=== PATIENT | male | born 1965 | race Caucasian/White ===

== ENCOUNTER 2025-05-10 22:56 | Inpatient (IN) ==
[2025-05-11] MEDS ORDERED: ACETAMINOPHEN 325 MG TAB PO PRN (01:53)
[2025-05-11] MEDS ORDERED: PROMETHAZINE 6.25 MG/50.25 ML BAG IV PRN (01:53)
[2025-05-11] MEDS ORDERED: NALOXONE HCL 0.4 MG/1 ML VIAL/CARP IV PRN (01:53)
[2025-05-11] MEDS ORDERED: MAGNESIUM HYDROXIDE SUSP 30 ML UDC PO PRN (01:53)
--- NOTE | 2025-05-11 01:59 | History & Physical Report ---
Date of Service May 11, 2025 Assessment & Plan (1) Hip fracture, right: Plan: Assessment and plan below following review of patient history/pertinent normal/abnormal diagnostic test results. Traumatic right hip fracture secondary to fall Hyperglycemia rule out DM Malnutrition Re: Low BMI Ongoing tobacco abuse Admit to [facility] Orthopedics consult RE right hip fracture ([facility] ED provider already in touch with [facility] Ortho [facility] over the phone.) N.p.o. status in anticipation of procedure in AM. Check hemoglobin A1c Dietitian consult in a.m. re: low BMI Nicotine patch as needed DVT prophylaxis. SCDs re: possible procedure Full code Text document was generated using [employer] voice recognition software. It may contain grammatical or spelling errors. Kindly contact undersigned for clarification of any documentation item in question. Admission and Anticipated Discharge Date Admission Date: May 11, 2025 History of Present Illness Chief Complaint: Hip fracture Primary Care Provider: NO PCP History obtained from patient and records. Medical history significant for ongoing tobacco abuse. Patient tripped at home yesterday while walking up a flight of stairs. Achy right hip pain following fall. Patient had trouble getting up. Denies head trauma/LOC, chest pain, SOB. Patient brought to [facility] ER for evaluation. CT imaging showed intertrochanteric fracture right femur. Patient transferred to [facility] for Orthopedics services. 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 Allergies Allergy/AdvReac Type Severity Reaction Status Date / Time No Known Allergies Allergy Verified 05/11/25 01:45 Home Medications Medication Instructions Recorded Confirmed Type No Known Home Medications 05/11/25 05/11/25 History Past Med/Surg History Problem List (Updated 05/11/25 @ 08:37 by Mak Puckett PA-C) Subtrochanteric fracture of right femur Hip fracture, right Social History Smoking Status: Current every day smoker Tobacco Type: Cigarettes Cigarettes Per Day: 1 pack per day; Second Hand Exposure: No; Do You Dip or Chew Tobacco: No; Tobacco Cessation Education Requested by Patient: No Hx Alcohol Use: Yes Alcohol type: beer Hx Substance Use: No Preferred Language: Malay Communication Ability: Effective Cna Gna Required: No Beliefs That Will Affect Care: None Current Living Situation: Spouse Other Information That Helps Us Care for You: No Feels Safe at Home: Yes Safety Concerns: Feels Safe At This Time Assistive Devices: Glasses Review of Systems Review of Systems: As per HPI, all other systems reviewed and negative Physical Exam Physical Exam: GENERAL: Comfortable, pleasant, underweight, no respiratory distress SKIN: Normal color, warm HEENT: [place] palpebral conjunctivae, no ptosis, dry buccal mucosa NECK : Supple, no tenderness CHEST : Decreased breath sounds, no tenderness HEART : RRR, no obvious murmurs ABDOMEN: no distention, nontender EXTREMITIES : No LE swelling, right hip tenderness, palpable pulses, no other conspicuous deformities noted NEUROLOGIC : Coherent, no facial asymmetry, no other gross focality Results & Data Results & Data Vital Signs (Past 12 Hours) Vital Signs Temp Pulse Resp BP Pulse Ox O2 Del Method 37 C 91 H 18 136/73 92 Room Air 05/11/25 02:00 05/11/25 02:00 05/11/25 02:00 05/11/25 02:00 05/11/25 02:00 05/11/25 02:00 Laboratory Results 05/10 ([facility]) Hemoglobin 14, hematocrit 45, WBC 13, platelets 196 Sodium 136, potassium 4, chloride 102, CO2 27, BUN 15, creatinine 1, glucose 161 CT head: no acute intracranial pathology CT cervical spine: No acute fracture or traumatic subluxation CT chest abdomen pelvis: Intertrochanteric fracture right femur Emphysema Diagnostic Findings EKG as per my interpretation (05/10, [facility]) : Rate 90, RAD, no ischemia
[2025-05-11] MEDS ORDERED: MoRPHine SULFATE 4 MG/ML 1 ML CARP\\VIAL IV PRN (02:11)
[2025-05-11] MEDS: SODIUM CHLORIDE 0.9% 1,000 ML IV STA (03:11)
[2025-05-11] MEDS: MoRPHine SULFATE 2 MG/ML CARP IV PRN (04:28)
[2025-05-11 07:20] LABS: Hematocrit (blood only) 36.9 % (42.0-52.0); Hemoglobin 12.4 g/dL (14.0-18.0); Immature Granulocytes # (auto) 0.04 K/uL (0.01-0.20); Immature Granulocytes % (auto) 0.5 %; Mean Corpuscular Hemoglobin 31.2 pg (25.0-34.0); Mean Corpuscular Volume 92.9 fL (80.0-100.0); Platelet Count 157 K/uL (130-400); RDW Standard Deviation 48.3 fL (36.4-46.3); Red Blood Count 3.97 M/uL (4.70-6.10); White Blood Count 8.11 K/ul (4.8-10.8)
[2025-05-11 07:38] LABS: Anion Gap 5.0 (3-11); Blood Urea Nitrogen 13.0 mg/dl (6-23); Calcium 8.6 mg/dl (8.6-10.3); Carbon Dioxide 28.0 mmol/L (21-32); Chloride 104.0 mmol/L (98-107); Creatinine Clr Calc Pharmacy 77.5 ml/min; Glucose 96.0 mg/dl (70-99(Fasting)); Potassium 4.0 mmol/L (3.5-5.1); Sodium 137.0 mmol/L (136-145)
[2025-05-11 07:54] LABS: Hemoglobin A1C 5.6 % (4.5-5.6)
--- NOTE | 2025-05-11 07:57 | XRay Report ---
EXAM: XR femur RT 2V routine CLINICAL HISTORY: fracture TECHNIQUE: X-ray images of the right femur were obtained in anteroposterior (AP) and lateral projections. COMPARISON: No prior studies are available for comparison. FINDINGS: Bone Structure: Fracture line is seen traversing the right trochanteric ridge, extending to involve the base of lesser trochanter and subtrochanteric area. The femoral shaft, neck, and proximal and distal regions are normal in structure and alignment. No evidence of acute fractures or dislocations. Bone density is within normal limits, and no osseous lesions or abnormalities are identified. The cortical bone is intact without evidence of periosteal reaction, cortical thinning, or irregularities. The medullary canal is normal in appearance, with no lytic or sclerotic lesions noted. Joint and Articular Surfaces: Joint spaces in the visualized hip and knee regions are preserved, with no significant narrowing, osteophyte formation, or subchondral sclerosis. Visualized articular surfaces of the femur are smooth and regular, without any signs of irregularity, osteophyte formation, or erosion. Soft Tissues: Periarticular and surrounding soft tissues appear normal. No signs of soft tissue swelling, calcifications, or masses. No evidence of degenerative changes, infection, or inflammatory processes observed. IMPRESSION: Non-displaced fracture of the right intertrochanteric ridge with involvement of base of lesser trochanter and subtrochanteric area. Disclaimer: A subtle bone abnormality or fracture may not be readily apparent on X-rays. Clinical correlation and further imaging, including CT, MRI, or follow-up X-rays, are advised if clinically warranted. Electronically signed by Arpit Wells 05-11-2025 07:56 AM
--- NOTE | 2025-05-11 08:15 | XRay Report ---
SEMIERECT AP CHEST RADIOGRAPH CLINICAL HISTORY: Preoperative evaluation. COMPARISON STUDY: No previous studies for comparison. FINDINGS: Lung volumes are normal. Lungs are clear. There is no pneumothorax or pleural effusion. Car diac size is normal. Mediastinal contours are normal. There is no evidence for pulmonary edema. IMPRESSION: No acute cardiopulmonary findings. ACT 112: Negative or not required by law. Electronically signed by: Eusebio Vale M.D. 05/11/2025 8:14 AM
--- NOTE | 2025-05-11 08:27 | XRay Report ---
EXAM: XR hip 1V RT w pelvis CLINICAL HISTORY: Hip fracture. TECHNIQUE: X-ray images of the right hip joints in lateral projection with pelvis in AP view. COMPARISON: No prior studies available for comparison. FINDINGS: Hip Joints: Non-displaced fracture of the right proximal femoral shaft involving the intertrochanteric ridge and a slightly displaced fracture of the base of the right lesser trochanter. Hip joints are normal with preserved joint spaces. No evidence of hip dislocation or significant degenerative changes. No osteophytes, joint space narrowing, or sclerosis noted. Sacroiliac joints appear normal and unremarkable. No evidence of sacroiliitis or significant degenerative changes. Symphysis Pubis: Symphysis pubis is normal and intact. No evidence of separation or widening. Soft Tissues: Visualised soft tissues are normal and unremarkable. No soft tissue swelling, calcifications, or masses. IMPRESSION: Non-displaced fracture of the right proximal femoral shaft involving the intertrochanteric ridge and a slightly displaced fracture of the base of the right lesser trochanter. Disclaimer: A subtle bone abnormality or fracture may not be readily apparent on X-rays, thus clinical correlation and further imaging including follow-up CT, MRI, or follow-up X-rays are advised as needed. Electronically signed by Arpit Wells 05-11-2025 08:26 AM
--- NOTE | 2025-05-11 08:38 | Orthopedic Consultation ---
Date of Service May 11, 2025 Assessment & Plan (1) Subtrochanteric fracture of right femur: * Case/imaging reviewed and discussed with Dr Baron * Recommend OR fixation, plan for TFN today 05/11 * Maintain NPO * Weight bearing status: NWB pre-op * Daily treatment: Physical Therapy/ Occupational Therapy per protocol * Pain control * Disposition: TBD * Remainder care per primary team * Will continue to follow History of Present Illness Reason for Consultation: right hip pain Requesting Physician: . Attending Physician: Chani Horne MD Patient is a 59 y/o male with right hip pain. No significant PMH in chart. Presents to hospital with right hip pain after a fall. Initially presented to [facility] and was diagnosed with right femur fracture, transferred to [facility] for orthopedic evaluation. Current workup including XR right hip and femur demonstrating subtrochanteric femur fracture. Admitted to hospital medicine team. Orthopedics consulted for management recommendations. At time of exam patient lying comfortably in bed, no acute distress. Reports moderate right hip pain at rest that increases with attempted use of the right leg. denies tingling or numbness RLE. No assistive devices at baseline. Allergies Allergy/AdvReac Type Severity Reaction Status Date / Time No Known Allergies Allergy Verified 05/11/25 01:45 Home Medications Medication Instructions Recorded Confirmed Type No Known Home Medications 05/11/25 05/11/25 History Past Med/Surg History Problem List Subtrochanteric fracture of right femur Hip fracture, right Social History Smoking Status: Current every day smoker Tobacco Type: Cigarettes Cigarettes Per Day: 1 pack per day; Second Hand Exposure: No; Do You Dip or Chew Tobacco: No; Tobacco Cessation Education Requested by Patient: No Hx Alcohol Use: Yes Alcohol type: beer Hx Substance Use: No Preferred Language: Albanian Communication Ability: Effective Mental Health Unit Lead Psychologist Required: No Beliefs That Will Affect Care: None Current Living Situation: Spouse Other Information That Helps Us Care for You: No Feels Safe at Home: Yes Safety Concerns: Feels Safe At This Time Assistive Devices: Glasses Review of Systems All systems reviewed & are unremarkable except as noted in HPI & below. Physical Exam . * General: Alert and oriented, no acute distress * Constitutional: well-developed, well-nourished. * Respiratory: Normal respiratory effort, no distress * Gastrointestinal: No tenderness to palpation, no rigidity or guarding. * Skin: No rash or lesion. * Neurologic: Grossly normal * Musculoskeletal: right lower extremity shortened and externally rotated. Otherwise no obvious deformity or overlying skin changes to the right leg. TTP anterior thigh and proximal thigh region. Otherwise no tenderness of the distal thigh, knee, lower leg. Pain with log roll, otherwise ROM hip not assessed. AROM foot/ankle intact. Sensation intact plantar/dorsal foot. Brisk capillary refill. Results & Data Results & Data Laboratory Results . Diagnostic Findings . Hip/Pelvis X-Ray 05/11/25 07:05 EXAM: XR hip 1V RT w pelvis CLINICAL HISTORY: Hip fracture. TECHNIQUE: X-ray images of the right hip joints in lateral projection with pelvis in AP view. COMPARISON: No prior studies available for comparison. FINDINGS: Hip Joints: Non-displaced fracture of the right proximal femoral shaft involving the intertrochanteric ridge and a slightly displaced fracture of the base of the right lesser trochanter. Hip joints are normal with preserved joint spaces. No evidence of hip dislocation or significant degenerative changes. No osteophytes, joint space narrowing, or sclerosis noted. Sacroiliac joints appear normal and unremarkable. No evidence of sacroiliitis or significant degenerative changes. Symphysis Pubis: Symphysis pubis is normal and intact. No evidence of separation or widening. Soft Tissues: Visualised soft tissues are normal and unremarkable. No soft tissue swelling, calcifications, or masses. IMPRESSION: Non-displaced fracture of the right proximal femoral shaft involving the intertrochanteric ridge and a slightly displaced fracture of the base of the right lesser trochanter. Disclaimer: A subtle bone abnormality or fracture may not be readily apparent on X-rays, thus clinical correlation and further imaging including follow-up CT, MRI, or follow-up X-rays are advised as needed. Electronically signed by Arpit Wells 05-11-2025 08:26 AM Femur X-Ray 05/11/25 07:06 EXAM: XR femur RT 2V routine CLINICAL HISTORY: fracture TECHNIQUE: X-ray images of the right femur were obtained in anteroposterior (AP) and lateral projections. COMPARISON: No prior studies are available for comparison. FINDINGS: Bone Structure: Fracture line is seen traversing the right trochanteric ridge, extending to involve the base of lesser trochanter and subtrochanteric area. The femoral shaft, neck, and proximal and distal regions are normal in structure and alignment. No evidence of acute fractures or dislocations. Bone density is within normal limits, and no osseous lesions or abnormalities are identified. The cortical bone is intact without evidence of periosteal reaction, cortical thinning, or irregularities. The medullary canal is normal in appearance, with no lytic or sclerotic lesions noted. Joint and Articular Surfaces: Joint spaces in the visualized hip and knee regions are preserved, with no significant narrowing, osteophyte formation, or subchondral sclerosis. Visualized articular surfaces of the femur are smooth and regular, without any signs of irregularity, osteophyte formation, or erosion. Soft Tissues: Periarticular and surrounding soft tissues appear normal. No signs of soft tissue swelling, calcifications, or masses. No evidence of degenerative changes, infection, or inflammatory processes observed. IMPRESSION: Non-displaced fracture of the right intertrochanteric ridge with involvement of base of lesser trochanter and subtrochanteric area. Disclaimer: A subtle bone abnormality or fracture may not be readily apparent on X-rays. Clinical correlation and further imaging, including CT, MRI, or follow-up X-rays, are advised if clinically warranted. Electronically signed by Arpit Wells 05-11-2025 07:56 AM Chest X-Ray 05/11/25 07:51 SEMIERECT AP CHEST RADIOGRAPH CLINICAL HISTORY: Preoperative evaluation. COMPARISON STUDY: No previous studies for comparison. FINDINGS: Lung volumes are normal. Lungs are clear. There is no pneumothorax or pleural effusion. Cardiac size is normal. Mediastinal contours are normal. There is no evidence for pulmonary edema. IMPRESSION: No acute cardiopulmonary findings. ACT 112: Negative or not required by law. Electronically signed by: Eusebio Vale M.D. 05/11/2025 8:14 AM PG Care Time/CCT Total # of Minutes Spent Total Time Spent with Patient: Total time spent is greater than 50% in coordination of care (as documented) at patient's floor/unit and/or counseling patient: [place] [address] IN/OBS CONSULT LVL 5,80M Patient Type New Medical Decision Making High Complexity Diagnoses Subtrochanteric fracture of right femur S72.21XA
[2025-05-11] MEDS ORDERED: PROPOFOL IV EMULSION 10 MG/ML 20 ML VIAL IV ONE (10:08)
[2025-05-11] MEDS ORDERED: ROCURONIUM BROMIDE 10 MG/ML 5 ML VIAL IV ONE (10:08)
[2025-05-11] MEDS ORDERED: ONDANSETRON INJ 2 MG/ML 2 ML VIAL ONE (10:08)
[2025-05-11] MEDS ORDERED: DEXAMETHASONE SOD INJ 4 MG/ML VIAL ONE (10:08)
[2025-05-11] MEDS ORDERED: MIDAZOLAM HCL 1 MG/ML 2ML VIAL ONE (10:09)
[2025-05-11] MEDS ORDERED: SUGAMMADEX SODIUM 200 MG/2 ML VIAL IV ONE (10:10)
[2025-05-11] MEDS: CHOLECALCIFEROL 125 MCG (5,000 UNITS) TAB PO SCH (10:13)
--- NOTE | 2025-05-11 10:20 | Anesthesiology Consultation ---
Date of Service May 11, 2025 Assessment & Plan Chart Review Chart Review: Acceptable Risk for Surgery, Patient NOT seen in Pre Admission Testing and medical charge entry specialist initiated Consults Requested none History Surgery Operation Date: 05/11/25 07:00 Proposed Procedures p Right Long Troch Nail - Saroj Baron MD Height/Weight Height: 5 ft 8 in Weight: 48 kg Allergies Allergy/AdvReac Type Severity Reaction Status Date / Time No Known Allergies Allergy Verified 05/11/25 01:45 Medications Home Medications Medication Instructions Recorded Confirmed Last Taken No Known Home Medications 05/11/25 05/11/25 Unknown Active Medications Generic Name Dose Route Start Last Admin Trade Name Freq PRN Reason Stop Dose Admin Sodium Chloride 1,000 mls @ 60 mls/hr 05/11/25 02:13 05/11/25 03:11 Nss IV 05/11/25 18:52 60 mls/hr .[id number] STA Administration Morphine Sulfate 2 mg 05/11/25 03:17 05/11/25 07:25 Morphine Sulfate 2 Mg/Ml Carp IV 05/25/25 02:10 2 mg Q4H PRN Administration Pain Vitamin D 125 mcg 05/11/25 09:00 05/11/25 10:13 Cholecalciferol 125 Mcg (5,000 Units) Tab PO 06/10/25 08:59 125 mcg QAM FILOMENA Administration Social History Smoking Status: Current every day smoker Smoking cigarettes per day: 1 pack per day Do You Dip or Chew Tobacco: No Hx Alcohol Use: Yes Alcohol type: beer alcohol intake frequency: a few times a month Hx Substance Use: No Physical Exam Vital Signs Last Vital Signs Temp 36.8 C 05/11/25 07:21 Pulse 72 05/11/25 07:21 Resp 18 05/11/25 07:21 BP 107/71 05/11/25 07:21 Pulse Ox 95 05/11/25 07:21 O2 Del Method Room Air 05/11/25 07:21 Testing Laboratory Results 05/11/25 06:38 05/11/25 06:38 Hemoglobin A1c 5.6 % (4.5-5.6) 05/11/25 06:38 Blood Type AB Positive 05/11/25 06:38 Antibody Screen NEGATIVE 05/11/25 06:38
[2025-05-11] MEDS ORDERED: POLYETHYLENE (MIRALAX) 17 GM PACK PO PRN (11:47)
[2025-05-11] MEDS ORDERED: ONDANSETRON INJ 2 MG/ML 2 ML VIAL IV PRN (11:47)
[2025-05-11] MEDS ORDERED: ATROPINE SULFATE 0.1 MG/ML 10ML SYR IV PRN (11:47)
[2025-05-11] MEDS ORDERED: BUPIVACAINE/EPINEPHRINE 0.5% MPF 1:200,000 10 ML VIAL ONE (11:48)
--- NOTE | 2025-05-11 11:49 | Hospitalist Progress Note ---
Date of Service May 11, 2025 Assessment & Plan (1) Hip fracture, right: Plan: 59 yo M w/ ongoing tobacco use and no other significant PMH came after he tripped at home while walking up a flight of stairs, did not have LOC/head trauma, fell on right hip and started right hip pain. He is being managed for the following: Traumatic right hip fracture secondary to fall Vitamin D deficiency Came in with fall, noted to have Non-displaced fracture of the right intertrochanteric ridge with involvement of base of lesser trochanter and subtrochanteric area. c/w pain management, Ortho on board Pt w/ no ho DM, stroke, AL, stents; hence mild-mod risk for much needed operative intervention. PT/OT and Chemo DVT Px post operatively after clearance from ortho. Prn bowel regimen. resume diet after sx. 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 pt reports ok appetite. Ongoing tobacco abuse: Nicotine patch as needed DVT prophylaxis. SCDs re: possible procedure Full code Text document was generated using [employer] voice recognition software. It may contain grammatical or spelling errors. Kindly contact undersigned for clarification of any documentation item in question. Admission and Anticipated Discharge Date Admission Date: May 11, 2025 Subjective Patient was seen and examined at bedside. Patient was lying in bed, on room air, NAD, resting comfortably. Patient reports right hip pain with movement. Patient denies any fever/sore throat/cough/chest pain/abdominal pain/shortness of breath/pain or burning while passing urine/diarrhea. Physical Exam Physical Exam: GENERAL: Comfortable, pleasant, underweight, no respiratory distress SKIN: Normal color, warm HEENT: [place] palpebral conjunctivae, no ptosis, moist buccal mucosa NECK : Supple, no tenderness CHEST : Decreased breath sounds, no tenderness HEART : RRR, no obvious murmurs ABDOMEN: no distention, nontender EXTREMITIES : No LE swelling, right hip tenderness, palpable pulses, no other conspicuous deformities noted NEUROLOGIC : Coherent, no facial asymmetry, no other gross focality Results & Data Results & Data Vital Signs (Past 12 Hours) Vital Signs Temp Pulse Resp BP Pulse Ox O2 Del Method 05/11/25 11:32 36.9 C 92 H 18 131/70 95 Room Air 05/11/25 07:21 36.8 C 72 18 107/71 95 Room Air 05/11/25 02:00 37 C 91 H 18 136/73 92 Room Air
--- NOTE | 2025-05-11 12:23 | History & Physical Bridge Note ---
Date of Service May 11, 2025 History & Physical Bridge Note I have examined the patient, reviewed the History & Physical and in the interval since the performance of the History & Physical I have noted the following changes of clinical significance: no changes noted
[2025-05-11] MEDS ORDERED: PHENYLEPHRINE 100MCG/ML 5ML SYR ONE (12:49)
[2025-05-11] MEDS ORDERED: PROPOFOL IV EMULSION 10 MG/ML 100 ML VIAL IV ONE (12:49)
[2025-05-11] MEDS ORDERED: ePHEDrine sulfate 50 MG/5 ML SYR ONE (12:50)
[2025-05-11] MEDS ORDERED: PHENYLEPHRINE HCL 10 MG/ML VIAL ONE (12:59)
[2025-05-11] MEDS: BUPIVACAINE/EPINEPHRINE 0.5% MPF 1:200,000 30 ML VIAL ONE (13:35)
--- NOTE | 2025-05-11 13:58 | Operative Report ---
PG Post Operative Report Pre & Post Diagnosis Operation Date: 05/11/25 07:00 Pre-Op Diagnosis: Intertrochanteric fracture of right femur Post-Op Diagnosis: Intertrochanteric fracture of right femur I identified the patient and participated in the time-out.: Yes Procedure Operation Date: 05/11/25 07:00 Actual Procedures p Right long trochanteric Femoral Nail(Right) - Saroj Baron MD Surgeon Saroj Baron MD Hot Roll Inspector Roly Brennan PA-C Estimated Blood Loss 50 Findings Consistent with Post-Op Diagnosis Specimens None Anesthesia Type Spinal MAC Complications none Disposition Accompanied Patient To Recovery: No Indications Patient is a 59-year-old gentleman who sustained a mechanical fall yesterday. He had caught his foot and twisted his leg and fell to the ground. Acute onset of pain and x-rays in the ER revealed a a intertrochanteric hip fracture. He was initially seen at [facility] and [place]. He was sent to our institution for care. He was transferred here, admitted by the hospitalist service, medically optimized and indicated for surgical repair. Description of Procedure Operative implants consist of: 1 Synthes right 340 mm x 11 mm long trochanteric nail. 2. 95 mm helical blade. 3. 5.0 x 44 mm distal interlocking screw x 1. The patient was taken to the op room, identified, placed on the operating table in the supine position. All contact areas were appropriately padded. IV antibiotics were tried by anesthesia team. Patient also received 1 g of TXA. A spinal anesthetic was implemented. The patient was then placed on the fracture table. The right leg was placed in traction and the left leg was placed in a well-leg patel. I applied some longitudinal traction to the right leg and internally rotated the foot so the kneecap pointed to the ceiling. X-ray was brought in. The fracture was anatomically aligned. The right hip and leg were then scrubbed with Hibiclens, prepped with ChloraPrep and draped in usual sterile fashion. A curvilinear incision was made just proximal to the tip of the trochanter and in line with the IM canal. Sharp dissection was got through subcutaneous tissue down to level the IT band gluteal fascia. The IT band gluteal fascia was then incised longitudinally in line with skin incision. Guidewire was then placed on the lateral tip of the trochanter and in line with the IM canal on both the AP and lateral planes. This was advanced down the canal. This was verified and then overreamed with a large 17 mm reamer. This guidewire were removed and exchanged for a ball-tipped guidewire which was advanced down the IM canal. We measured for nail length and a 340 mm nail was selected. I then overreamed the guidewire with a 10 mm reamer followed by the 11, 12, and 12.5 mm flexible reamers. We then placed a 340 mm x 11 mm right long trochanteric nail over the guidewire and tapped into position. A lateral aiming arm was attached. A stab incision was made the lateral aiming arm was advanced the lateral aspect the femur. Guidewire was placed in the central aspect of the femoral head slightly inferior on the AP plane and directly in the center on the lateral. We measured and a 95 mm helical blade was selected. The cortical drill was used to breach the cortex and the triple reamer was set at 95 the guidewire was overreamed. A 95 mm helical blade was then tapped into position. The proximal setscrew was tightened and backed off half a turn. The proximal aiming arm was removed and some final x-rays were obtained of the proximal hip. Attention drawn toward distal interlocking. Using the perfect [place] technique a stab incision was made and the drill was created and a 44 mm distal interlocking screw was placed. Some final x-rays were obtained. Attention drawn toward closing. All wounds were irrigated extensively. I did inject locally with 30 cc of half percent Marcaine with epinephrine. The gluteal fascia was then closed with #1 Vicryl suture in a running fashion the subcutaneous tissues of all wounds were then closed with 2-0 Dexon suture in a buried interrupted fashion skin was closed skin cyn. The leg was then cleaned and dried and a sterile dressing Vineet Xeroform, 4 fours, ABD pad and Medipore tape was applied. The patient was then taken off the fracture table and transported to the recovery room in stable condition. Patient tolerated the procedure well and no complications. Roly Brennan, my physician physician assistant certified, was present for the entire procedure. His assistance was required for proper patient positioning, prepping and draping, surgical exposure, retraction, performed the technical details of the operation, placement implants, closure of the incision site, and placement of the postoperative sterile dressing. I attest to the content of the Intraoperative Record and any orders documented therein. Any exceptions are noted below.
--- NOTE | 2025-05-11 13:59 | Fluoroscopy Report ---
FL femur RT 2V CLINICAL HISTORY: RT TROCHNAILacute fracture of the right femur COMPARISON STUDY: Femur radiographs 05/11/2025 FLUOROSCOPY TIME: 72.2 seconds FLUOROSCOPY IMAGES: 4 EXPOSURE DOSE: 9.20 mGy FINDINGS: Acute intertrochanteric right femoral fracture fixated with an intertrochanteric nail with medullary haily. Satisfactory alignment without dislocation. IMPRESSION: Fluoroscopic assistance as above. ACT 112: Negative or not required by law. Electronically signed by: Jairo Ramires M.D. 05/11/2025 1:58 PM
--- NOTE | 2025-05-11 14:51 | Anesthesiology Progress Note ---
Date of Service May 11, 2025 Anesthesia Post Procedure Vital Signs Vital Signs: Temp Pulse Pulse Resp BP Pulse Ox O2 Del Method 05/11/25 14:40 36.6 C 83 16 105/64 97 Room Air 05/11/25 14:30 81 12 104/64 97 Room Air 05/11/25 14:20 87 14 108/57 L 100 Oxymask 05/11/25 14:10 92 H 12 111/56 L 100 Oxymask 05/11/25 14:00 88 16 98/45 L 100 Oxymask 05/11/25 13:53 36.0 C L 98 H 16 94/50 L 100 Oxymask 05/11/25 11:32 36.9 C 92 H 18 131/70 95 Room Air 05/11/25 07:21 36.8 C 72 18 107/71 95 Room Air 05/11/25 07:20 Room Air 05/11/25 02:00 37 C 91 H 18 136/73 92 Room Air O2 Flow Rate 05/11/25 14:40 05/11/25 14:30 05/11/25 14:20 4 05/11/25 14:10 4 05/11/25 14:00 6 05/11/25 13:53 6 05/11/25 11:32 05/11/25 07:21 05/11/25 07:20 05/11/25 02:00 Pain Intensity Right Hip: Pain Intensity: 4 Transfer of Care Handoff Completed per policy Notes Mental Status: alert / awake / arousable and participated in evaluation Patient Amnestic to Procedure: Yes Nausea / Vomiting: adequately controlled Pain: adequately controlled Airway Patency, RR, SpO2: stable & adequate BP & HR: stable & adequate Hydration State: stable & adequate Neuraxial Anesthesia: was administered and sensory block is resolving Anesthetic Complications: no major complications apparent and Pt Satisfied with anesthetic care
[2025-05-11] MEDS: TRANEXAMIC ACID / 0.7% NACL 1000MG/100ML BAG IV ONE (15:46)
[2025-05-11] MEDS: TRANEXAMIC ACID / 0.7% NACL 1,000 MG/100 ML BAG IV SCH (15:47)
[2025-05-11] MEDS: ASPIRIN 81 MG ECTAB PO SCH (20:32)
[2025-05-12 06:49] LABS: Hematocrit (blood only) 36.3 % (42.0-52.0); Hemoglobin 12.5 g/dL (14.0-18.0); Immature Granulocytes # (auto) 0.04 K/uL (0.01-0.20); Immature Granulocytes % (auto) 0.5 %; Mean Corpuscular Hemoglobin 31.6 pg (25.0-34.0); Mean Corpuscular Volume 91.7 fL (80.0-100.0); Platelet Count 151 K/uL (130-400); RDW Standard Deviation 47.0 fL (36.4-46.3); Red Blood Count 3.96 M/uL (4.70-6.10); White Blood Count 8.39 K/ul (4.8-10.8)
--- NOTE | 2025-05-12 07:31 | Orthopedic Progress Note ---
Date of Service May 12, 2025 Assessment & Plan (1) Subtrochanteric fracture of right femur: Unfortunately still with a lot of pain in the right hip. The surgery went well. He can be weightbearing as tolerated. Will see how he does today with physical therapy. His vital signs are stable. The nursing staff can change his dressings tomorrow. He is orthopedically stable for discharge when medically ready. He will follow-up with orthopedics in 2 weeks. Subjective The was seen and examined at bedside this morning. Unfortunately since having a lot of pain in the right hip. He is struggling to sit at the edge of bedside when I came in the room. He had no other complaints aside from the hip pain.. Review of Systems All systems reviewed & are unremarkable except as noted in HPI & below. Physical Exam On physical exam of the right hip, the dressing is clean and dry. His leg is out in full extension. He is active dorsiflexion and plantarflexion of the right ankle.. Results & Data Results & Data Laboratory Results . Diagnostic Findings . PG Care Time/CCT Total # of Minutes Spent Total Time Spent with Patient: Total time spent is greater than 50% in coordination of care (as documented) at patient's floor/unit and/or counseling patient: Coding Level of Care Code 39703 Post Operative Follow-Up Diagnoses Subtrochanteric fracture of right femur S72.21XA
[2025-05-12 07:39] LABS: Anion Gap 10.0 (3-11); Blood Urea Nitrogen 13.0 mg/dl (6-23); Calcium 8.8 mg/dl (8.6-10.3); Carbon Dioxide 25.0 mmol/L (21-32); Chloride 99.0 mmol/L (98-107); Creatinine Clr Calc Pharmacy 78.6 ml/min; Glucose 88.0 mg/dl (70-99(Fasting)); Potassium 4.1 mmol/L (3.5-5.1); Sodium 134.0 mmol/L (136-145)
[2025-05-12 11:00] LABS: Prealbumin 11.8 mg/dl (20-40)
--- NOTE | 2025-05-12 13:21 | Hospitalist Progress Note ---
Date of Service May 12, 2025 Assessment & Plan (1) Hip fracture, right: Plan: 59 yo M w/ ongoing tobacco use and no other significant PMH came after he tripped at home while walking up a flight of stairs, did not have LOC/head trauma, fell on right hip and started right hip pain. He is being managed for the following: Traumatic right hip fracture secondary to fall Vitamin D deficiency Came in with fall, noted to have Non-displaced fracture of the right intertrochanteric ridge with involvement of base of lesser trochanter and subtrochanteric area. s/p Right long trochanteric Femoral Nail 05/11 c/w pain management, c/w bowel regimen Ortho evaled, aspirin bid for dvt px. wt bear as lilia. Hyperglycemia ruled out DM, A1c 5.6 Malnutrition Re: Low BMI, pulp mixer consult. pt reports ok appetite. Ongoing tobacco abuse: Nicotine patch as needed DVT prophylaxis. SCDs re: possible procedure Full code pt/ot, likely rehab need. Text document was generated using [employer] voice recognition software. It may contain grammatical or spelling errors. Kindly contact undersigned for clarification of any documentation item in question. Admission and Anticipated Discharge Date Admission Date: May 11, 2025 Subjective Patient was seen and examined at bedside. Patient was lying in bed, on room air, NAD, resting comfortably. Patient reports right hip pain at operative site. Patient denies any fever/sore throat/cough/chest pain/abdominal pain/shortness of breath/pain or burning while passing urine/diarrhea. Physical Exam Physical Exam: GENERAL: Comfortable, pleasant, underweight, no respiratory distress SKIN: Normal color, warm HEENT: [place] palpebral conjunctivae, no ptosis, moist buccal mucosa NECK : Supple, no tenderness CHEST : Decreased breath sounds, no tenderness HEART : RRR, no obvious murmurs ABDOMEN: no distention, nontender EXTREMITIES : No LE swelling, right hip dressing c/d/i, palpable pulses, no other conspicuous deformities noted NEUROLOGIC : Coherent, no facial asymmetry, no other gross focality Results & Data Results & Data Vital Signs (Past 12 Hours) Vital Signs Temp Pulse Resp BP Pulse Ox O2 Del Method 05/12/25 08:53 37.3 C 97 H 18 111/68 96 Room Air 05/12/25 07:44 Room Air 05/12/25 03:00 37.2 C 72 16 121/60 95 Room Air
[2025-05-12] MEDS: DOCUSATE SODIUM 100 MG CAP PO SCH (20:29)
[2025-05-13 09:59] LABS: Hematocrit (blood only) 41.1 % (42.0-52.0); Hemoglobin 14.3 g/dL (14.0-18.0); Mean Corpuscular Hemoglobin 31.8 pg (25.0-34.0); Mean Corpuscular Volume 91.5 fL (80.0-100.0); Platelet Count 150 K/uL (130-400); RDW Standard Deviation 45.8 fL (36.4-46.3); Red Blood Count 4.49 M/uL (4.70-6.10); White Blood Count 8.03 K/ul (4.8-10.8)
[2025-05-13 10:16] LABS: Anion Gap 11.0 (3-11); Blood Urea Nitrogen 18.0 mg/dl (6-23); Calcium 9.6 mg/dl (8.6-10.3); Carbon Dioxide 27.0 mmol/L (21-32); Chloride 96.0 mmol/L (98-107); Creatinine Clr Calc Pharmacy 71.2 ml/min; Glucose 142.0 mg/dl (70-99(Fasting)); Potassium 4.2 mmol/L (3.5-5.1); Sodium 134.0 mmol/L (136-145)
--- NOTE | 2025-05-13 12:32 | Hospitalist Progress Note ---
Date of Service May 13, 2025 Assessment & Plan (1) Hip fracture, right: Plan: 59 yo M w/ ongoing tobacco use and no other significant PMH came after he tripped at home while walking up a flight of stairs, did not have LOC/head trauma, fell on right hip and started right hip pain. He is being managed for the following: Traumatic right hip fracture secondary to fall Vitamin D deficiency Came in with fall, noted to have Non-displaced fracture of the right intertrochanteric ridge with involvement of base of lesser trochanter and subtrochanteric area. s/p Right long trochanteric Femoral Nail 05/11 c/w pain management, c/w bowel regimen Ortho evaled, aspirin bid for dvt px. wt bear as lilia. Hyperglycemia ruled out DM, A1c 5.6 Malnutrition Re: Low BMI, clinical services director consult. pt reports ok appetite. Ongoing tobacco abuse: Nicotine patch as needed DVT prophylaxis. SCDs re: possible procedure Full code pt/ot, likely rehab need. Text document was generated using [employer] voice recognition software. It may contain grammatical or spelling errors. Kindly contact undersigned for clarification of any documentation item in question. Admission and Anticipated Discharge Date Admission Date: May 11, 2025 Subjective Patient was seen and examined at bedside. Patient was lying in bed, on room air, NAD, resting comfortably. Patient reports right hip pain at operative site getting better controlled. Patient denies any fever/sore throat/cough/chest pain/abdominal pain/shortness of breath/pain or burning while passing urine/diarrhea. Physical Exam Physical Exam: GENERAL: Comfortable, pleasant, underweight, no respiratory distress SKIN: Normal color, warm HEENT: [place] palpebral conjunctivae, no ptosis, moist buccal mucosa NECK : Supple, no tenderness CHEST : Decreased breath sounds, no tenderness HEART : RRR, no obvious murmurs ABDOMEN: no distention, nontender EXTREMITIES : No LE swelling, right hip dressing c/d/i, palpable pulses, no other conspicuous deformities noted NEUROLOGIC : Coherent, no facial asymmetry, no other gross focality Results & Data Results & Data Vital Signs (Past 12 Hours) Vital Signs Temp Resp BP Pulse Ox O2 Del Method 05/13/25 09:41 Room Air 05/13/25 08:39 36.6 C 18 93/65 L 95 Room Air
--- NOTE | 2025-05-14 07:41 | Orthopedic Progress Note ---
Date of Service May 14, 2025 Assessment & Plan (1) Subtrochanteric fracture of right femur: * Continue Current Treatment * S/p right TFN * Weight bearing status: WBAT * Daily treatment: Physical Therapy/ Occupational Therapy per protocol * Pain control * Continue to monitor for ABLA * DVT prophylaxis, ok to resume from ortho standpoint * Disposition: home, home PT * Office/hospital f/u 2 weeks for progress check and staple/suture removal * Remainder care per primary team * Stable for discharge from ortho standpoint, further planning per primary team Subjective .Active Problems: S/p right TFN POD 3 59 y/o male s/p right TFN. Doing well overall, pain managed and improved function. Denies fever/chills, chest pain/SOB, nausea/vomiting. Otherwise no complaints. Review of Systems All systems reviewed & are unremarkable except as noted in HPI & below. Physical Exam . * General: Alert and oriented, no acute distress * Constitutional: well-developed, well-nourished. * Respiratory: Normal respiratory effort, no distress * Gastrointestinal: No tenderness to palpation, no rigidity or guarding. * Skin: No rash or lesion. * Neurologic: Grossly normal * Musculoskeletal: right hip surgical dressing CDI, not removed for exam. Otherwise no obvious deformity or overlying skin changes. Diffuse TTP proximal thigh and hip region. Otherwise no specific tenderness of distal thigh, lower leg, foot/ankle. AROM hip flexion intact. AROM foot/ankle intact. Sensation intact plantar/dorsal foot. Brisk capillary refill. Results & Data Results & Data Laboratory Results . Diagnostic Findings . PG Care Time/CCT Total # of Minutes Spent Total Time Spent with Patient: Total time spent is greater than 50% in coordination of care (as documented) at patient's floor/unit and/or counseling patient: Coding Level of Care Code 19844 Post Operative Follow-Up Diagnoses Subtrochanteric fracture of right femur S72.21XA
--- NOTE | 2025-05-14 14:32 | Hospitalist Progress Note ---
Date of Service May 14, 2025 Assessment & Plan (1) Hip fracture, right: Plan: 59 yo M w/ ongoing tobacco use and no other significant PMH came after he tripped at home while walking up a flight of stairs, did not have LOC/head trauma, fell on right hip and started right hip pain. He is being managed for the following: Traumatic right hip fracture secondary to fall Vitamin D deficiency Came in with fall, noted to have Non-displaced fracture of the right intertrochanteric ridge with involvement of base of lesser trochanter and subtrochanteric area. s/p Right long trochanteric Femoral Nail 05/11 c/w pain management, c/w bowel regimen Ortho evaled, aspirin bid for dvt px. wt bear as lilia. Hyperglycemia ruled out DM, A1c 5.6 Malnutrition Re: Low BMI, set staff fitter consult. pt reports ok appetite. Ongoing tobacco abuse: Nicotine patch as needed DVT prophylaxis. aspirin bid Full code pt/ot, likely rehab need. Text document was generated using [employer] voice recognition software. It may contain grammatical or spelling errors. Kindly contact undersigned for clarification of any documentation item in question. Admission and Anticipated Discharge Date Admission Date: May 11, 2025 Subjective Patient was seen and examined at bedside. Patient was lying in bed, on room air, NAD, resting comfortably. Patient reports right hip pain at operative site getting better controlled but still not confident he can manage him at home, he doesn't want to go to rehab rather he wants to go home w/ home PT but would like to go tomorrow. Patient denies any fever/sore throat/cough/chest pain/abdominal pain/shortness of breath/pain or burning while passing urine/diarrhea. Physical Exam Physical Exam: GENERAL: Comfortable, pleasant, underweight, no respiratory distress SKIN: Normal color, warm HEENT: [place] palpebral conjunctivae, no ptosis, moist buccal mucosa NECK : Supple, no tenderness CHEST : Decreased breath sounds, no tenderness HEART : RRR, no obvious murmurs ABDOMEN: no distention, nontender EXTREMITIES : No LE swelling, right hip dressing c/d/i, palpable pulses, no other conspicuous deformities noted NEUROLOGIC : Coherent, no facial asymmetry, no other gross focality Results & Data Results & Data Vital Signs (Past 12 Hours) Vital Signs Temp Pulse Resp BP Pulse Ox O2 Del Method 05/14/25 07:38 36.8 C 95 H 16 108/72 95 Room Air 05/14/25 07:34 Room Air
[2025-05-14 22:33] VITALS: O2SAT 96
[2025-05-15 07:01] VITALS: BP 117/75; PULSE 100; RESP 18; TEMP 98.1
--- NOTE | 2025-05-15 11:16 | Discharge Summary ---
Date of Service May 15, 2025 Admission HPI Per Admitting Provider History obtained from patient and records. Medical history significant for ongoing tobacco abuse. Patient tripped at home yesterday while walking up a flight of stairs. Achy right hip pain following fall. Patient had trouble getting up. Denies head trauma/LOC, chest pain, SOB. Patient brought to [facility] ER for evaluation. CT imaging showed intertrochanteric fracture right femur. Patient transferred to [facility] for Orthopedics services. 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 Admission Exam Per Admitting Provider GENERAL: Comfortable, pleasant, underweight, no respiratory distress SKIN: Normal color, warm HEENT: [place] palpebral conjunctivae, no ptosis, dry buccal mucosa NECK : Supple, no tenderness CHEST : Decreased breath sounds, no tenderness HEART : RRR, no obvious murmurs ABDOMEN: no distention, nontender EXTREMITIES : No LE swelling, right hip tenderness, palpable pulses, no other conspicuous deformities noted NEUROLOGIC : Coherent, no facial asymmetry, no other gross focality Principal Diagnosis Traumatic right hip fracture secondary to fall Vitamin D deficiency Discharge Exam GENERAL: Comfortable, pleasant, underweight, no respiratory distress SKIN: Normal color, warm HEENT: [place] palpebral conjunctivae, no ptosis, moist buccal mucosa NECK : Supple, no tenderness CHEST : Decreased breath sounds, no tenderness HEART : RRR, no obvious murmurs ABDOMEN: no distention, nontender EXTREMITIES : No LE swelling, right hip dressing c/d/i, palpable pulses, no other conspicuous deformities noted NEUROLOGIC : Coherent, no facial asymmetry, no other gross focality Discharge Data Allergies Allergy/AdvReac Type Severity Reaction Status Date / Time No Known Allergies Allergy Verified 05/11/25 01:45 Consultations 05/11/25 01:55 Consult Orthopedic Surgery Routine Procedures Performed Operation Date: 05/11/25 07:00 Actual Procedures p Right Trochanteric Femoral Nail(Right) - Saroj Baron MD Ordered Studies 05/11/25 12:44 FL femur RT 2V Routine Hospital Course (1) Hip fracture, right: 59 yo M w/ ongoing tobacco use and no other significant PMH came after he tripped at home while walking up a flight of stairs, did not have LOC/head trauma, fell on right hip and started right hip pain. He is being managed for the following: Traumatic right hip fracture secondary to fall Vitamin D deficiency Came in with fall, noted to have Non-displaced fracture of the right intertrochanteric ridge with involvement of base of lesser trochanter and subtrochanteric area. s/p Right long trochanteric Femoral Nail 05/11 c/w pain management, c/w bowel regimen Ortho evaled, aspirin bid for dvt px. wt bear as lilia. Patient did well after surgery; was walking without any difficulty with physical therapy. Pain was well-controlled. He denied fever, chills, chest pain, shortness of breath or abdominal pain. Patient discharged home with home health. Patient to follow-up with PCP after discharge Text document was generated using [employer] voice recognition software. It may contain grammatical or spelling errors. Kindly contact undersigned for clarification of any documentation item in question. Total Time Total Time Spent Total Time Spent (In Minutes): 45 Total Time Includes: Examination of the Patient, Discharge Planning, Medication Reconciliation, Communication With Other Providers and Other Discharge Plan Discharge Items Patient Disposition: Home - Home Health Services Reason For Visit: HIP FRACTURE Discharge Diagnosis: Intramedullary Nailing of hip fracture Activity: Per Instructions section Weightbearing: Full weightbearing Non-emergency contact: Surgeon Call non-emergency contact if: you have any medication questions Follow-up/Referrals: Emma Clark [Outside Practitioners] - (In order to get established, you must stop at the office and fill out information there for the physician to review. After that is completed, they will schedule you an appointment.) Saroj Baron MD [Physician] - 05/25/25 8:40 am () Diet: Regular Addtl Attending Provider Instructions: You were admitted to the hospital due to a fracture. You underwent surgery for it on May 11, 2025. You are prescribed following medication; Take aspirin 81 mg twice a day Take extra strength Tylenol as needed every 6 hours for pain. If the pain is severe, you have been prescribed oxycodone as needed as well. Take omeprazole 20 mg once a day while you are on aspirin Take MiraLAX and docusate for constipation. May fully weightbear as tolerated. Dry dressing change to hip and incision areas daily May remove bandage/dressing to shower daily Pending Studies at Discharge: No Stand-Alone Forms: [employer], Smoking Cessation Medications and DC Order Prescriptions: New aspirin 81 mg Tablet,Delayed Release (Dr/Ec) 81 mg PO BID Qty: 35 0RF docusate sodium 100 mg Capsule 100 mg PO BID Qty: 60 0RF oxycodone 5 mg Tablet 5 mg PO Q4H PRN (Reason: pain) Qty: 14 0RF polyethylene glycol 3350 [Miralax] 17 gram Powder In Packet 17 g PO DAILY PRN (Reason: constipation) Qty: 30 0RF cholecalciferol (vitamin D3) 125 mcg (5,000 unit) Tablet 125 mcg PO QAM 60 Days Qty: 60 0RF omeprazole 20 mg capsule,delayed release(DR/EC) 20 mg PO DAILY 42 Days Qty: 42 0RF Discharge Orders: Discharge Order (Routine); Ordered 05/15/25 Ordered By: Redd Mas Admission Data Admit Date/Time: 05/11/25 01:51 Attending Provider: Redd Mas Admit Provider: Brian Campos Primary Care Provider: PCP,NO Other Providers: Saroj Baron; [facility]
== END 2025-05-15 12:51 | disposition home health service (06) | DRG 481 ==
LOC: SUATTDRO 05-11 01:34 → 3W 05-11 01:34 → SUATTDRO 05-11 01:51